=== PATIENT | male | born 1955 | race Caucasian/White ===

== ENCOUNTER 2024-04-19 04:21 | Emergency (ER) | payer MEDICAID ==
[~2024-04-19] VITALS: Ht 170.2 cm; Wt 83.9 kg
[2024-04-19 04:40] VITALS: O2SAT 97
[2024-04-19] MEDS: ALBUTEROL FS 2.5 MG/0.5 ML VIAL.NEB NEB ONE (04:40)
[2024-04-19] MEDS ORDERED: ALBUTEROL FS 2.5 MG/0.5 ML VIAL.NEB ONE (04:44)
[2024-04-19] MEDS ORDERED: ALBU8.5H8 INH (05:14)
[2024-04-19 05:33] VITALS: BP 165/89; TEMP 209.3; O2SAT 98
== END 2024-04-19 05:33 | disposition home or self-care (01) ==
LOC: ER 04:23
DX: J45.909 Unspecified asthma, uncomplicated (principal)